=== PATIENT | female | born 1940 | race Caucasian/White ===

== ENCOUNTER 2016-05-12 12:51 | Day surgery (SDC) | payer MEDICARE, OTHER ==
[2016-05-08 12:29] LABS: HEMATOCRIT 46.6 % (36.0-47.0); HEMOGLOBIN 15.5 g/dL (12.0-15.5); HGB HCT DIFFERENCE -0.1; MEAN CORPUSCULAR HEMOGLOBIN 30.1 pg (27.0-33.4); MEAN CORPUSCULAR HGB CONC 33.2 g/dL (32.0-36.0); MEAN CORPUSCULAR VOLUME 91 fl (80-97); RED BLOOD COUNT 5.15 10^6/uL (3.72-5.28); RED CELL DISTRIBUTION WIDTH 14.6 % (11.5-14.0); WHITE BLOOD COUNT 8.4 10^3/uL (4.0-10.5)
[2016-05-08 12:48] LABS: APPEARANCE,URINE CLOUDY; BILIRUBIN,URINE NEGATIVE (NEGATIVE); GLUCOSE, URINE NEGATIVE (NEGATIVE); KETONES,URINE NEGATIVE (NEGATIVE); LEUKOCYTE ESTERASE,URINE NEGATIVE (NEGATIVE); NITRITE,URINE NEGATIVE (NEGATIVE); PROTEIN,URINE NEGATIVE (NEGATIVE); URINE SPECIFIC GRAVITY 1.015; UROBILINOGEN,URINE NEGATIVE mg/dL (<2.0)
[2016-05-08 13:00] LABS: ANION GAP 12 (5-19); BLOOD UREA NITROGEN 21 mg/dL (7-20); CARBON DIOXIDE 28 mmol/L (22-30); CHLORIDE 102 mmol/L (98-107); CREATININE RESULT 0.67 mg/dL (0.52-1.25); GLUCOSE 91 mg/dL (75-110); POTASSIUM 4.6 mmol/L (3.6-5.0); SODIUM 141.8 mmol/L (137-145)
--- NOTE | 2016-05-08 21:50 | EKG REPORT ---
SEVERITY:- ABNORMAL ECG - SINUS RHYTHM BIATRIAL ABNORMALITIES : Confirmed by: Lacho Angel 08-May-2016 21:49:12
[~2016-05-12 12:51] MED LIST: BUPIVACAINE HCL 0.5 % INJ/PF 30 ML SDV ONE; CEFAZOLIN SODIUM 1 GM in DEXTROSE 5%-WATER 50 ML IV PRN; LACTATED RINGERS 1000 ML IV PRN; LIDOCAINE 0.5% INJ-PF (5 MG/ML) 50 ML SDV SUBCUT PRN; LIDOCAINE 1% INJ-PF (10 MG/ML) 30 ML SDV ONE
[2016-05-12] MEDS ORDERED: FENTANYL CITRATE INJ/PF 100 MCG/2 ML AMPUL ONE (13:17)
[2016-05-12] MEDS ORDERED: MIDAZOLAM 2 MG/2 ML INJ ONE ×2 (13:18)
[2016-05-12] MEDS ORDERED: PROPOFOL INJ 200 MG/20 ML VIAL IV ONE (13:18)
[2016-05-12] MEDS ORDERED: DIPHENHYDRAMINE HCL 50 MG/ML VIAL IV PRN (13:50)
[2016-05-12] MEDS ORDERED: ONDANSETRON HCL INJ/PF 4 MG/2 ML SDV IV PRN (13:50)
[2016-05-12] MEDS ORDERED: FENTANYL CITRATE INJ/PF 100 MCG/2 ML AMPUL IV PRN ×3 (13:50)
[2016-05-12] MEDS ORDERED: CEFAZOLIN INJ 1 GM VIAL ONE (13:51)
--- NOTE | 2016-05-12 15:08 | Operative Report ---
Operative Report DATE OF SURGERY: 05/12/16 PREOPERATIVE DIAGNOSIS: Severe Right Carpal Tunnel Syndrome POSTOPERATIVE DIAGNOSIS: Same OPERATION: Right Open Carpal Tunnel Release, Oppensplasty Utilizing Palmaris Longus SURGEON: FAIZAN VILLA ANESTHESIA: GA COMPLICATIONS: None ESTIMATED BLOOD LOSS: Minimal PROCEDURE: Indication for above procedure: 75-year-old female with long-standing history of right carpal tunnel syndrome. She was seen in clinic and was noted to have a severe carpal tunnel with atrophy. At that point we discussed treatment options and the decision was made to proceed with open carpal tunnel release with tendon transfer. Risks and benefits were explained to the patient patient verbalized understanding consented for the procedure. Procedure In Detail: Patient was seen and evaluated in the preoperative holding area. The upper extremity was initialized and marked. Patient received 2g of Ancef IV for bacterial prophylaxis. Patient was taken back to the operative room where transferred to the operative table and placed under general anesthesia. Once they were adequately anesthetized a nonsterile tourniquet was placed on the upper extremity. A surgical team debriefing was performed ensuring all instrumentation was available, the surgical procedure was discussed with possible concerns reviewed. The upper extremity was prepped with chlorhexidine and alcohol and draped in a sterile fashion. A timeout was done identifying correct patient, procedure and extremity everyone in attendance agree with this and verbalized no concerns. The extremity was exsanguinated the tourniquet was inflated to 250 mmHg. Skin incision was made from the distal palmar crease crossing the proximal wrist crease in a Salma type fashion. Blunt dissection was performed proximally identifying the palmar cutaneous branch of the median nerve between the PL and FCR interval. I then followed the palmaris longus into the palmar fascia to the pretendinous bands. Approximately 1.5 cm of palmar fascia was incised to give me appropriate length for the opponensplasty transfer. The palmaris longus was freed proximally. The transverse carpal ligament was then excised from its distal portion to his proximal portion including release of the antebrachial fascia. The median nerve was identified along with the current motor branch. Is significant tenosynovium and compression at the proximal wrist crease. Once I assured there is no further compression of proceeded with tendon transfer. A chevron-shaped skin incision was made along the radial aspect of the MCP joint. Blunt dissection was done to the insertion of the abductor pollicis brevis careful attention was made to retract the branch of the superficial radial nerve. I then made a subcutaneous tunnel from the palmaris longus to the insertion of the abductor pollicis brevis at the MCP joint. The tendon was then shuttled and the thumb was placed in palmar abduction with the wrist in neutral position and the MCP joint at extension. A total of 3 horizontal mattress sutures with 3-0 Ethibond. With wrist tenodesis demonstrated extension were then placed from the abductor pollicis insertion and a portion of the dorsal extensor mechanism. With wrist tenodesis there was evidence of palmar abduction. Performed by sutures carefully coagulated with bipolar cautery. The wounds were then copiously irrigated with normal saline. Subcutaneous tissues were closed with interrupted 4-0 Monocryl suture. Skin incision was closed with interrupted 3-0 nylon sutures at the chevron incision and the proximal carpal tunnel incision and a running horizontal mattress stitch was used to close the palmar incision. 15 mL of 0.5% Marcaine without epinephrine was injected for postoperative pain control. We was dressed with Xeroform 4 x 4 's and patient was placed in a plaster thumb spica splint with the wrist at neutral position and the thumb at full palmar abduction. The tourniquet was deflated patient had normal capillary refill. Postoperative plan: Patient will follow-up in the office in 10-14 days at that point we will proceed with wound check and patient will be placed in a thumb spica cast.
[2016-05-12] MEDS ORDERED: HYDROCODONE/ACETAMINOPHEN 5-325 MG TABLET PO PRN (15:09)
[2016-05-12] MEDS ORDERED: MORPHINE SULFATE 10 MG/ML INJ IV PRN (15:09)
--- NOTE | 2016-05-12 15:09 | PDOC DISCHARGE SUMMARY ---
Discharge Summary (SDC) - Discharge Final Diagnosis: Severe Right Carpal Tunnel Syndrome Date of Surgery: 05/12/16 Discharge Date: 05/12/16 Condition: Good Treatment or Instructions: Schedule Follow Up w/ Dr. Trav Jones @ [facility] for Surgery to be seen in 10-14 days or as scheduled [place]: [place]: [place]: Keep splint clean/dry/intact. Ice and elevate May begin finger range of motion attempting to make full fist. Stool softener of choice when on pain medication. Prescriptions: Hydrocodone/Acetaminophen [[place] 5-325 mg Tablet] 1 tab PO Q6 PRN #40 tablet PRN Reason: Discharge Diet: As Tolerated Discharge Activity: No Lifting Over 10 Pounds, No Lifting/Push/Pulling Report the Following to Your Physician Immediately: Increase in Pain, Fever over 101 Degrees, Redness, Swelling, Warmth, Increased Soreness
[2016-05-12] MEDS ORDERED: ONDANSETRON HCL INJ/PF 4 MG/2 ML SDV ONE (15:16)
[2016-05-12] MEDS ORDERED: ACETAMINOPHEN 100 ML IV ONE (15:24)
[2016-05-12] MEDS ORDERED: IPRATROPIUM/ALBUTEROL 0.5-2.5 MG/3 ML AMPUL NEB ONE (16:50)
[2016-05-12 18:36] VITALS: BP 128/63
== END 2016-05-12 18:30 | disposition home or self-care (01) ==
LOC: OROUT 12:51
PROVIDERS: ATTEND Orthopaedic Surgery
PROC: 01N50ZZ Release Median Nerve, Open Approach (ICD-10-PCS; 2016-05-12)
PROC: 0LX50ZZ Transfer Right Lower Arm and Wrist Tendon, Open Approach (ICD-10-PCS; principal; 2016-05-12 14:00)
DX: G56.01 Carpal tunnel syndrome, right upper limb (principal); I10 Essential (primary) hypertension; E78.5 Hyperlipidemia, unspecified; F17.210 Nicotine dependence, cigarettes, uncomplicated; Z79.899 Other long term (current) drug therapy; Z79.51 Long term (current) use of inhaled steroids
CPT/HCPCS: 93005; 36415; 85027; 80048; 81001; 71020; 93010; 26496; 64721; J2250; J0690; J3010; J2405; J2704; A9270; J0131; 1810; J3490; J7620

== ENCOUNTER → 2020-02-08 | Outpatient (CLI) | payer MEDICARE, OTHER | LOC: LAB 15:22 | PROVIDERS: ATTEND Nurse Practitioner Family | DX: R82.71 Bacteriuria (principal); R10.30 Lower abdominal pain, unspecified | CPT/HCPCS: 87086 ==